=== PATIENT | female | born 1995 | race Hispanic/Latino ===

== ENCOUNTER 2021-11-28 18:59 | Emergency (ER) | payer BC ==
--- OUTSIDE RECORDS SUMMARY | 2021-11-28 19:41 | XMS REPORT | Continuity of Care Document ---
:1995 Author Organization [facility] t Address [address] [place] [address] Care Team Providers Name Role Phone PCP, DOES NOT HAVE A Primary Care Physician Unavailable Anika CROWELL Attending Clinician 2, Lab Attending Clinician Unavailable Rufus SALAZAR, Zaheer Attending Clinician Payers Payer Name Policy Type Policy Number Effective Date Expiration Date S [facility] - [id number] 2018 00:00:00 OUT OF STATE Problems Condition Condition Condition Status Onset Resolution Last Treating Co mments Source Name Details Category Date Date Treatment Clinician Date Normal Normal Disease Active Univers intrauteri intrauteri 2-16 it y of ne ne 00:00: [place] , , 00 Me dical antepartum antepartum Br anch Obesity Obesity Disease Active Univers (BMI (BMI 1-25 ity of 30-39.9) 30-39.9) 00:00: [address] Allergies, Adverse Reactions, Alerts Allergy Allergy Status Severity Reaction(s) Onset Inactive Treating Comm ents Source Name Type Date Date Clinician NO KNOWN Drug Active Univers ALLERGIE Class ity of [facility] Social History Social Habit Start Date Stop Date Quantity Comments Source ASSERTION 2021-06-26 University 00:00:00 [facility] Exposure to 2021-10-29 2021-11-08 Not sure University of SARS-CoV-2 00:00:00 10:42:00 [facility] (event) [place] Alcohol intake 2021-10-13 2021-10-[address] [facility] 00:00:00 00:00:00 (finding) [facility] Tobacco use and 2020-06-21 2020-06-21 Never used Universit y of exposure 00:00:00 00:00:00 [facility] Sex Ass[birth year] Universit y of 00:00:00 00:00:00 [facility] Smoking Status Start Date Stop Date Source Never smoker [facility] Medications Ordered Filled Start Stop Current Ordering Indication Dosage Frequency Signature Comments Components Source Medication Medication Date Date Medication? Clinician (SIG) Name Name Yes [id number] 1{tbl} Take 1 U nivers vitamin 5-11 tablet by ity of w/FA tablet 00:00: mouth [place] 00 daily. Medical Branch Yes [id number] 1{tbl} Take 1 U nivers vitamin 5-11 tablet by ity of w/FA tablet 00:00: mouth [place] 00 daily. Medical Branch Yes [id number] 1{tbl} Take 1 U nivers vitamin 5-11 tablet by ity of w/FA tablet 00:00: mouth [place] 00 daily. [facility] Immunizations Ordered Filled Immunization Date Status Comments Sour e Immunization Name Name SARS-COV-2 COVID-19 2021-09-06 Completed Unive rsity of PFIZER SHERIF-SUCROSE 00:00:00 [place] [facility] VACCINE (ZAMBRANO TOP) Branch SARS-COV-2 COVID-19 2021-09-06 Completed Unive rsity of PFIZER SHERIF-SUCROSE 00:00:00 [place] [facility] VACCINE (ZAMBRANO TOP) Branch SARS-COV-2 COVID-19 2021-09-06 Completed Unive rsity of PFIZER SHERIF-SUCROSE 00:00:00 [place] [facility] VACCINE (ZAMBRANO TOP) Branch Influenza Virus 2021-04-06 Completed Universit y of Vaccine 00:00:00 [facility] Influenza Virus 2021-04-06 Completed Universit y of Vaccine 00:00:00 [facility] Influenza Virus 2021-04-06 Completed Universit y of Vaccine 00:00:00 [facility] SARS-COV-2 COVID-19 2021-02-09 Completed Unive rsity of PFIZER VACCINE 00:00:00 [facility] SARS-COV-2 COVID-19 2021-02-09 Completed Unive rsity of PFIZER VACCINE 00:00:00 [facility] SARS-COV-2 COVID-19 2021-02-09 Completed Unive rsity of PFIZER VACCINE 00:00:00 [facility] SARS-COV-2 COVID-19 2021-01-17 Completed Unive rsity of PFIZER VACCINE 00:00:00 [facility] SARS-COV-2 COVID-19 2021-01-17 Completed Unive rsity of PFIZER VACCINE 00:00:00 [facility] SARS-COV-2 COVID-19 2021-01-17 Completed Unive rsity of PFIZER VACCINE 00:00:00 [facility] TDAP 2020-08-16 Completed University of 00:00:00 [facility] TDAP 2020-08-16 Completed University of 00:00:00 [facility] TDAP 2020-08-16 Completed University of 00:00:00 [facility] Influenza Virus 2020-04-06 Completed Universit y of Vaccine Quad .5 mL 00:00:00 [facility] 6+ MO Branch Influenza Virus 2020-04-06 Completed Universit y of Vaccine 00:00:00 [facility] Influenza Virus 2020-04-06 Completed Universit y of Vaccine [place] .5 mL 00:00:00 [facility] 6+ MO Branch Influenza Virus 2020-04-06 Completed Universit y of Vaccine 00:00:00 [facility] Influenza Virus 2020-04-06 Completed Universit y of Vaccine Quad .5 mL 00:00:00 [facility] 6+ [place] Branch Influenza Virus 2020-04-06 Completed Universit y of Vaccine 00:00:00 [facility] Procedures Procedure Date / Time Performed Performing Clinician [facility] e MATERNAL SERUM SCREEN 2021-11-08 15:40:00 Opal Hooper [facility] 1-Q Medical Branch Encounters Start End Encounter Admission Attending Care Care Encounter Source Date/Time Date/Time Type Type Clinicians Facility Department ID 2021-12-05 2021-12-05 Outpatient R [facility] [id number] Univers 11:00:00 11:00:00 [id number] ity [facility] 2021-12-05 2021-12-05 Outpatient P [facility] [id number] Univers 11:00:00 11:00:00 ity [facility] 2021-11-11 2021-11-11 Telephone Anika [facility] [id number] Univers 00:00:00 00:00:00 Radha MARIELA [id number] i [id number] [id number] In dical NAL [address] [facility] 2021-11-08 2021-11-08 Sampling Expert 2, Adc Lab [facility] [id number] Univers 10:45:00 11:00:00 Visit Opal Hooper [id number] ity [facility] [id number] [id number] In dical NAL 353 [facility] 2021-11-08 2021-11-08 Orders Opal Hooper [id number] Univers 00:00:00 00:00:00 Only Zaheer YANEZ [id number] it y of [facility] [id number] [place] as [id number] [address] Results Test Description Test Time Test Comments Results Result Comments Source MATERNAL SERUM SCREEN 1-Q 2021-11-09 20:00:00 Test Item Value Reference Range Interpretation Comme nts INTERPRETATION:-Q (test code SEE NOTE Screen negative for open = 61864-2) NTD. MSAFP RISK OPEN NTD-Q (test NOT CALC code = 85234-3) $MSAFP-Q (test code = 155.5 ng/mL 1834-1) ADJ MULTIPLE OF MEDIAN-Q (test code = 28630-6) -Q (test code = 8251-1) See Below Thi s is a screening test, not a diagnosti c test. Thisrisk assess ment report is based in part o n demographicdata provided by the ordering ph ysician. Please notifyth e laboratory promptly if any data are incorrect. Fora ssistance with recalculations, please call your [facility]. For assistance withinterpretat ion of these results, please contact yourcal [employer] genetic nutrition counselor or or [phone] NFO([phone]). Interpretive Cu toffsScreen Positive for Op en NTD: > or = 2.50 adjusted M OM ?> or = 1.90 adjusted MOM fo r ?Insulin-depend ent diabetics ?> or = 4.00 ad justed MOM for ?twins ?> or = 3 .50 adjusted MOM for ?Twins insulin-depende nt ?diabetics ?> or = 4.50 adjus jona MOM for ?triplets GESTATIONAL AGE-Q (test code weeks = 87517-3) MATERNAL WEIGHT-Q (test code lbs = 3142-7) EST'D DATE OF DELIVERY-Q 03/19/2022 (test code = 75254-1) CAREN DETERMINED BY-Q (test LMP code = 12252-9) MOTHER'S ETHNIC ORIGIN-Q (test code = 14724-5) NUMBER OF FETUSES-Q (test code = 69068-0) INSULIN-DEPEND DIABETIC-Q NO (test code = 70626-4) REPEAT SPECIMEN-Q (test code NO = 90195-9) HX OF NEURAL TUBE DEFECTS-Q YES (test code = 21966-6) PREV DOWN SYND-Q NO (test code = 18340-6) DONOR EGG-Q (test code = NO 37948-2) DONOR AGE: EGG RETRIEVAL-Q NOT GIVEN (test code = 94447-3) REBECA (test code = REBEAC) PERFORMED BY ZALORA MAYLIN; [address] [facility] HOSPITALNayana VIJAYA CAI [id number]; GABBIE VALENTINO MD [facility]
--- NOTE | 2021-11-28 21:15 | ER ---
Nurse's Notes [facility] Name: Brigid Fournier Age: 26 yrs Sex: Female : 1995 Arrival Date: 11/28/2021 Time: 19:01 Bed DIS2 Private MD: Diagnosis: Acute upper respiratory infection, unspecified Presentation: 11/28 19:11 Chief complaint: Patient states: Cough, congestion, sore throat that started the other ww day and has progressively gotten worse. Coronavirus screen: Client denies travel out of the [place] in the last 14 days. Ebola Screen: Patient denies travel to an Ebola-affected area in the 21 days before illness onset. Initial Sepsis Screen: Does the patient meet any 2 criteria? No. Patient's initial sepsis screen is negative. Does the patient have a suspected source of infection? No. Patient's initial sepsis screen is negative. Risk Assessment: Do you want to hurt yourself or someone else? Patient reports no desire to harm self or others. Onset of symptoms is unknown. 19:11 Method Of Arrival: Ambulatory ww 19:11 Acuity: BUDDY 4 ww Triage Assessment: 19:13 General: Appears in no apparent distress. comfortable, Behavior is calm, cooperative. ww Pain: Complains of pain in uvula, left aspect of posterior pharynx and right aspect of posterior pharynx. Neuro: Level of Consciousness is awake, alert, obeys commands, Oriented to person, place, time, situation, Gait is steady, Speech is normal. Respiratory: Airway is patent Respiratory effort is even, unlabored, Respiratory pattern is regular, symmetrical. 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 - Social history:: Smoking status: Patient denies any tobacco usage or history of. Screenin:28 Abuse screen: Denies threats or abuse. Nutritional screening: On. Tuberculosis ll3 screening: No symptoms or risk factors identified. Fall Risk None identified. Vital Signs: 19:11 BP 112 / 68; Pulse 80; Resp 18; Temp 98.2; Pulse Ox 100% ; Weight 64.86 kg; Height 5 ww ft. 0 in. (152.40 cm); Pain 0/10; 19:11 Body Mass Index 27.93 (64.86 kg, 152.40 cm) ED Course: 19:01 Patient arrived in ED. am2 19:04 Cassidy Devries PA is PHCP. en 19:05 Bakari Pantoja MD is Attending Physician. en 19:13 Triage completed. ww 19:13 Arm band placed on. ww 19:15 COVID swab sent to lab. ww 19:15 COVID-19 SARS RT PCR (Document "Date of Onset" if Symptomatic) Sent. ww 21:14 Scar Hand MD is Referral Physician. en 21:28 Patient has correct armband on for positive identification. Call light in reach. Side ll3 rails up X 1. 21:28 No provider procedures requiring assistance completed. Patient did not have IV access ll3 during this emergency room visit. Administered Medications: No medications were administered Medication: 21:29 VIS not applicable for this client. ll3 Outcome: 21:14 Discharge ordered by . en 21:28 Discharged to home ambulatory. ll3 21:28 Condition: stable 21:28 Discharge instructions given to patient, Instructed on discharge instructions, follow up and referral plans. Demonstrated understanding of instructions, follow-up care. 21:29 Patient left the ED. ll3 Signatures: Haylee Ceja am2 Abby Bruno RN RN ll3 Lauren Rashid RN RN ww Cassidy Devries PA PA en
--- NOTE | 2021-11-28 21:15 | EDPHYS ---
Physician Documentation [facility] Name: Brigid Fournier Age: 26 yrs Sex: Female : 1995 Arrival Date: 11/28/2021 Time: 19:01 Bed DIS2 Private MD: ED Physician Bakari Pantoja HPI: 11/28 19:13 This 26 yrs old Female presents to ER via Unassigned with complaints of R/O en covid. 19:13 26yo F A0 25w EGA presents to ED with persistent dry cough by 3 days associate with en headache, sore throat, body aches. No fevers, chills, nausea, vomiting. No wheezing, shortness of breath or dyspnea exertion or difficulty breathing. 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 - Social history:: Smoking status: Patient denies any tobacco usage or history of. ROS: 19:13 Constitutional: Negative for fever, chills, and weight loss. en 19:13 Constitutional: Positive for 19:13 Constitutional: Positive for body aches, chills. 19:13 ENT: Positive for hoarseness, sore throat. 19:13 Neck: Negative for pain with movement, pain at rest. 19:13 Cardiovascular: Negative for chest pain. 19:13 Respiratory: Positive for cough, Negative for dyspnea on exertion, orthopnea, shortness of breath, wheezing. 19:13 Abdomen/GI: Negative for 19:13 Neuro: Positive for headache, Negative for dizziness, numbness, tingling, weakness. Exam: 19:13 Constitutional: This is a well developed, well nourished patient who is awake, alert, en and in no acute distress. 19:13 Head/face: Sinus tenderness, is not appreciated. 19:13 Eyes: Conjunctiva: exudate, injected. 19:13 ENT: Mouth: Lips: normal, moist, Posterior pharynx: Airway: patent, Tonsils: are normal in appearance, erythema, is not appreciated, exudate, is not appreciated. 19:13 Respiratory: the patient does not display signs of respiratory distress, Respirations: normal, Breath sounds: are clear throughout, no rales, rhonchi, no stridor, no wheezing. 19:13 Abdomen/GI: Inspection: abdomen appears normal, Bowel sounds: normal, in all quadrants, Palpation: abdomen is soft and non-tender, in all quadrants. 19:13 Back: CVA tenderness, is absent. 19:13 Musculoskeletal/extremity: ROM: intact in all extremities, full active range of motion. 19:13 Skin: no rash present. 19:13 Neuro: Orientation: is normal, appropriate for stated age, no acute changes, to person, place \\T\\ time. Mentation: appropriate for stated age. Vital Signs: 19:11 BP 112 / 68; Pulse 80; Resp 18; Temp 98.2; Pulse Ox 100% ; Weight 64.86 kg; Height 5 ww ft. 0 in. (152.40 cm); Pain 0/10; 19:11 Body Mass Index 27.93 (64.86 kg, 152.40 cm) ww MDM: 19:13 Differential diagnosis: viral Infection, bacterial infection, URI, bronchitis, en pneumonia COVID. Data reviewed: vital signs, nurses notes, lab test result(s), and as a result, I will Pt's lungs are CTAB and afebrile, low suspicion for PNA. Will check COVID and document FHTs. 20:42 Patient medically screened. en 21:13 ED course: COVID negative. Will d/c home with URI. en 11/28 19:05 Order name: COVID-19 SARS RT PCR (Document "Date of Onset" if Symptomatic) en Administered Medications: No medications were administered Disposition: 11/29 02:06 Co-signature as Attending Physician, Bakari Pantoja MD. [email or web address] Disposition Summary: 11/28/21 21:14 Discharge Ordered Location: Home en Problem: new en Symptoms: have improved en Condition: Stable en Diagnosis - Acute upper respiratory infection, unspecified en Followup: en - With: Scar Hand MD - When: As needed - Reason: Discharge Instructions: - Discharge Summary Sheet en - Viral Respiratory Infection en Forms: - Medication Reconciliation Form en - Thank You Letter en - Antibiotic Education en - Prescription Opioid Use en Signatures: Dispatcher [employer] Bakari Johnson MD MD [facility] Lauren Rashid RN RN Cassidy Bertrand PA PA en
[2021-11-28 21:37] VITALS: BP 112/68; TEMP 98.2; O2SAT 100
== END 2021-11-28 21:29 | disposition home or self-care (01) ==
LOC: ER 18:59
DX: O99.512 Diseases of the respiratory system complicating pregnancy, second trimester (principal); J06.9 Acute upper respiratory infection, unspecified; Z3A.25 25 weeks gestation of pregnancy; Z20.822 Contact with and (suspected) exposure to COVID-19
CPT/HCPCS: 99283; U0003